=== PATIENT | male | born 1985 | race Caucasian/White ===

== ENCOUNTER 2020-02-18 22:11 | Emergency (ER) | payer OTHER, SELFPAY ==
[2020-02-18 22:13] VITALS: BP 123/74; PULSE 118; RESP 18; TEMP 37.2; O2SAT 100
--- NOTE | 2020-02-18 22:28 | ED.SKABFB ---
HPI - Skin/Abscess/Foreign Bdy General Chief complaint: Skin/Abscess/Foreign Body Stated complaint: cellulitis Time Seen by Provider: 02/18/20 22:28 History of Present Illness HPI narrative: Seen earlier today at [facility] and had I&D of a left lower leg abscess. Left AMA without prescriptions or discharge instructions, because they were planning to admit him and he did not want to stay in the hospital. He presents now because he is worried that he might lose his leg. He has significant pain and swelling in the left lower leg and distal thigh. No fever, nausea, vomiting. Related Data Allergies Allergy/AdvReac Type Severity Reaction Status Date / Time acetaminophen AdvReac Mild Nausea Verified 02/18/20 22:16 Review of Systems Review of Systems: All systems reviewed & are unremarkable except as noted in HPI and below Constitutional: Constitutional: Denies fever(s) Cardiovascular: Cardiovascular: Denies chest pain Respiratory: Respiratory: Denies dyspnea Gastrointestinal: Gastrointestinal: Denies nausea Neurologic: Denies numbness and Denies weakness [facility] [place] Social History Social History (Updated 02/27/20 @ 14:27 by Frederick Chavez MD) Smoking status: Current every day smoker Gender identity (if verbalized by the patient): Male Exam Const: General: healthy appearing, no acute distress and alert Orientation/consciousness: patient oriented x3 HENMT: Head: normal to inspection Resp: Effort & Inspection: normal respiratory effort Auscultation: clear to auscultation bilaterally, no rales, no rhonchi and no wheezes Cardio: Jugular venous distension: no JVD Rate: regular rate Rhythm: regular rhythm Heart sounds: no murmurs GI: Inspection: non-distended GI Palp: Yes Soft to palpation and No Tenderness to palpation present (GI) Skin: General skin exam: erythema and induration Wounds: wounds noted (I&D incision to left lateral lower leg with packing in place) Neuro: General: patient oriented x3 and moves all extremities Speech: normal speech Extrem: General: no edema Psych: Appearance: well kempt Affect: normal affect Course Vital Signs Vital signs: Vital Signs Temperature 37.2 C 02/18/20 22:13 Pulse Rate 118 H 02/18/20 22:13 Respiratory Rate 18 02/18/20 22:13 Blood Pressure 123/74 02/18/20 22:13 Pulse Oximetry 100 02/18/20 22:13 Temperature 37.2 C 02/18/20 22:13 Pulse Rate 118 H 02/18/20 22:13 Respiratory Rate 18 02/18/20 22:13 Blood Pressure 123/74 02/18/20 22:13 Pulse Oximetry 100 02/18/20 22:13 MDM - Skin/Abscess/Foreign Bdy MDM Narrative Medical decision making narrative: Abscess seems to have been drained well on exam and bedside US. He has not sign of systemic infection and no medical problems. He should be a good candidate for outpatient treatment. I will start him on bactrim. Discharge Plan Discharge Clinical Impression: Cellulitis and abscess of left lower extremity Patient Disposition: Home, Self-Care Condition: Stable Instructions: Antibiotic Form, Abscess (ED) Prescriptions: New sulfamethoxazole-trimethoprim [Bactrim DS] 800-160 mg tablet 1 tablet PO Q12H Qty: 20 RF: 0 Follow-up/Referrals: Mitchell Gilman MD [Physician] - 1 Week PHYSICIAN,[employer] [Primary Care Provider] -
== END 2020-02-18 23:01 | disposition home or self-care (01) ==
LOC: ANHED 22:57
PROVIDERS: Emergency Provider Emergency Medicine
DX: L03.116 Cellulitis of left lower limb (principal); F17.200 Nicotine dependence, unspecified, uncomplicated
CPT/HCPCS: 99283; A9270